=== PATIENT | female | born 1990 | race Caucasian/White ===

== ENCOUNTER 2024-03-10 11:41 | Outpatient (CLI) | payer OTHER | END 2024-03-10 11:49 | disposition home or self-care (01) | LOC: PRENATAL 11:41 | PROVIDERS: ATTEND Obstetrics & Gynecology Maternal & Fetal Medicine | DX: O36.80X0 Pregnancy with inconclusive fetal viability, not applicable or unspecified (principal); Z36.82 Encounter for antenatal screening for nuchal translucency ==

== ENCOUNTER 2024-05-10 11:42 | Outpatient (CLI) | payer OTHER | END 2024-05-10 11:43 | disposition home or self-care (01) | LOC: PRENATAL 11:42 | PROVIDERS: ATTEND Obstetrics & Gynecology Maternal & Fetal Medicine | DX: O35.3XX0 Maternal care for (suspected) damage to fetus from viral disease in mother, not applicable or unspecified (principal); O44.00 Complete placenta previa NOS or without hemorrhage, unspecified trimester; Z14.8 Genetic carrier of other disease; Z3A.21 21 weeks gestation of pregnancy ==

== ENCOUNTER 2024-07-25 14:04 | Outpatient (CLI) | payer OTHER | END 2024-07-25 14:08 | disposition home or self-care (01) | LOC: PRENATAL 14:04 | PROVIDERS: ATTEND Obstetrics & Gynecology Maternal & Fetal Medicine | DX: O26.849 Uterine size-date discrepancy, unspecified trimester (principal); O36.8199 Decreased fetal movements, unspecified trimester, other fetus; Z14.8 Genetic carrier of other disease; Z3A.34 34 weeks gestation of pregnancy ==